=== PATIENT | female | born 1975 | race Caucasian/White ===

== ENCOUNTER → 2016-11-07 | Outpatient (CLI) | payer OTHER ==
--- NOTE | 2016-11-07 15:16 | CPEKG ---
Heart Rate: 91 RR Interval: 659 P-R Interval: 132 QRSD Interval: 76 QT Interval: 356 QTC Interval: 439 P [place]: 70 QRS [place]: 58 T Wave [place]: 43 EKG Severity - NORMAL ECG - EKG Impression: SINUS RHYTHM Electronically Signed By: John Reveles 07-Nov-2016 15:21:44
== END ==
LOC: FCP 15:03
PROVIDERS: ATTEND Internal Medicine
DX: Z51.81 Encounter for therapeutic drug level monitoring (principal); I49.9 Cardiac arrhythmia, unspecified

== ENCOUNTER → 2017-02-08 | Outpatient (CLI) | payer OTHER | LOC: FLAB 15:11 | PROVIDERS: ATTEND Internal Medicine | DX: R09.81 Nasal congestion (principal) ==